=== PATIENT | female | born 1965 | race Caucasian/White ===

== ENCOUNTER 2024-09-10 06:01 | Day surgery (SDC) | payer OTHER ==
[2024-09-06 16:24] VITALS: BMI 30.9
[2024-09-10] MEDS ORDERED: ceFAZolin SODIUM 1 GM VIAL ONE (08:32)
[2024-09-10] MEDS ORDERED: KETOROLAC TROMETHAMINE 30 MG/1 ML VIAL ONE (08:32)
[2024-09-10] MEDS ORDERED: MIDAZOLAM HCL 2 MG/2 ML SINGLE DOSE VIAL ONE (08:32)
[2024-09-10] MEDS ORDERED: PROPOFOL 20 ML ONE (08:32)
[2024-09-10] MEDS: ceFAZolin 2 GRAM PREMIX BAG IVPB ONE (08:48)
[2024-09-10] MEDS: BUPIVACAINE HCL/PF 0.5% (5MG/ML) 10 ML VIAL IJ ONE (08:50)
[2024-09-10] MEDS: LIDOCAINE HCL 1%, 10 MG/ML (20ML VIAL) NR ONE (08:50)
[2024-09-10] MEDS: DEXAMETHASONE SOD PHOSPHATE 4 MG/1 ML VIAL IVPUSH ONE (09:18)
[2024-09-10] MEDS ORDERED: ONDANSETRON 4 MG/2 ML VIAL IVPUSH PRN (09:22)
[2024-09-10] MEDS ORDERED: oxyCODONE HCL 5 MG TABLET PO PRN (09:22)
[2024-09-10] MEDS ORDERED: LACTATED RINGERS SOLUTION 1,000 ML IV SCH (09:30)
[2024-09-10] MEDS ORDERED: ACETAMINOPHEN INJECTION 100 ML ONE (09:44)
[2024-09-10] MEDS: ACETAMINOPHEN 1000 MG/100 ML BAG IVPB PRN (09:46)
[2024-09-10 12:53] VITALS: BP 112/85
[2024-09-10 12:54] VITALS: PULSE 57; TEMP 97.5
[2024-09-10 12:55] VITALS: RESP 18
== END 2024-09-10 13:24 | disposition home or self-care (01) ==
LOC: JASU-SURG 06:01
PROVIDERS: ATTEND Podiatrist
PROC: 0HBRXZZ Excision of Toe Nail, External Approach (ICD-10-PCS; 2024-09-10)
PROC: 0QBR0ZX Excision of Left Toe Phalanx, Open Approach, Diagnostic (ICD-10-PCS; principal; 2024-09-10 08:30)
DX: M89.8X7 Other specified disorders of bone, ankle and foot (principal); L60.0 Ingrowing nail
CPT/HCPCS: 73630-TC-LT; 88305-TC; 88311-TC; 88312-TC; 94760; J0131